=== PATIENT | male | born 1970 | race Caucasian/White ===

== ENCOUNTER → 2016-11-22 | Outpatient (CLI) | payer BC ==
--- NOTE | 2016-11-22 12:13 | KCIC ---
PROCEDURE Two view chest radiograph. HISTORY Chronic cough and short of air. TECHNIQUE Two-view chest radiograph was obtained. COMPARISON None. FINDINGS The lungs are clear. The cardiopulmonary silhouette is within normal limits. Calcified left hilar lymph node is noted. There is no pleural effusion. Bony structures are intact. There are minimal degenerative changes in the thoracic spine. IMPRESSION No acute thoracic findings. Electronically signed by: Bo Arambula MD (November 22, 2016 12:12:00)
== END | disposition home or self-care (01) ==
LOC: KCIC 11:43
PROVIDERS: ATTEND Family Medicine
DX: R05 Cough (principal); R06.02 Shortness of breath
CPT/HCPCS: 71020